=== PATIENT | female | born 1985 | race African-American/Black ===

== ENCOUNTER 2018-02-04 14:06 | Emergency (ER) | payer MEDICAID ==
[~2018-02-04] VITALS: Ht 162.6 cm; Wt 111.0 kg
[~2018-02-04 14:06] MED LIST: ADVIR; PRO AIR
[2018-02-04] MEDS ORDERED: METHOCARBAMOL 500MG TABLET PO ONE (17:15)
[2018-02-04] MEDS ORDERED: IBUPROFEN 600MG TABLET PO ONE (17:15)
[2018-02-04 19:00] VITALS: BP 152/92
== END 2018-02-04 19:01 | disposition home or self-care (01) ==
LOC: ER 14:06
DX: S20.212A Contusion of left front wall of thorax, initial encounter (principal); M25.511 Pain in right shoulder; J45.909 Unspecified asthma, uncomplicated; F17.200 Nicotine dependence, unspecified, uncomplicated; M54.40 Lumbago with sciatica, unspecified side; V89.2XXA Person injured in unspecified motor-vehicle accident, traffic, initial encounter; Y93.89 Activity, other specified; Y92.89 Other specified places as the place of occurrence of the external cause; Y99.8 Other external cause status; Z88.0 Allergy status to penicillin; Z91.041 Radiographic dye allergy status
CPT/HCPCS: 71101; 72100; 73030; 81025; 99284

== ENCOUNTER 2018-06-18 10:00 | Emergency (ER) | payer MEDICAID, OTHER ==
[~2018-06-18] VITALS: Ht 165.1 cm; Wt 118.0 kg
[2018-06-18 13:26] LABS: CLARITY URINE CLOUDY (CLEAR); COLOR URINE ORANGE (YELLOW); KETONES URINE NEGATIVE (NEGATIVE); LEUKOCYTE ESTERASE URINE TRACE (NEGATIVE); NITRITE URINE NEGATIVE (NEGATIVE); OCCULT BLOOD URINE 3+ (NEGATIVE); PROTEIN URINE 1+ (NEGATIVE); SPECIFIC GRAVITY URINE 1.022 (1.005-1.030); UROBILINOGEN URINE 0.2 E.U./dL (0.2-1.0)
[2018-06-18 14:07] LABS: BASOPHILS % 1.1 % (0.0-2.0); EOSINOPHILS % 3.3 % (0.0-5.0); HEMATOCRIT. 40.8 % (36.0-48.0); HEMOGLOBIN. 12.9 g/dL (12.0-16.0); MEAN CORPUSCULAR HEMOGLOBIN 27.3 pg (28.0-32.0); MEAN CORPUSCULAR VOLUME 86.4 fL (81.0-99.0); MEAN PLATELET VOLUME 8.5 fl (7.4-10.4); MONOCYTES % 6.1 % (2.0-8.0); NEUTROPHILS % 51.5 % (40.0-76.0); PLATELET 202 x1000/uL (130-400); RED BLOOD CELL COUNT 4.72 mill/uL (4.2-5.4); RED CELL DISTRIBUTION WIDTH 15.3 % (11.6-14.6)
[2018-06-18 14:12] LABS: CHLORIDE 109 mEq/L (98-107)
[2018-06-18] MEDS ORDERED: KETOROLAC 60MG/2ML VIAL IM ONE (15:15)
[2018-06-18] MEDS ORDERED: KETOROLAC 30MG/ML VIAL IV ONE (15:30)
[2018-06-18 15:38] VITALS: BP 121/71
== END 2018-06-18 16:01 | disposition home or self-care (01) ==
LOC: ER 10:00
DX: N93.9 Abnormal uterine and vaginal bleeding, unspecified (principal); N39.0 Urinary tract infection, site not specified; J45.909 Unspecified asthma, uncomplicated; Z97.5 Presence of (intrauterine) contraceptive device; Z91.041 Radiographic dye allergy status; Z88.0 Allergy status to penicillin; Z91.013 Allergy to seafood
CPT/HCPCS: 36415; 80053; 81003; 81025; 85025; 96374; 99283; J1885; Z7610